=== PATIENT | female | born 1995 | race Hispanic/Latino ===

== ENCOUNTER 2017-09-03 18:34 | Emergency (ER) | payer SELFPAY ==
[2017-09-03 19:47] LABS: Absolute Lymphocytes (CBC) 2.5 K/uL (0.7-4.9); Absolute Monocytes 0.4 K/uL (0.1-1.3); Absolute Neutrophil 6.5 K/uL (1.8-8.0); Basophils % 0.3 % (0-1.3); Eosinophils % 1.3 % (0-4.4); Lymphocytes % 26.6 % (15.3-44.8); MCH 26.2 pg (27.0-35.0); MCV 80.4 fL (80-100); MPV 8.2 fL (7.6-11.3); Monocytes % 4.1 % (3.3-12.3); RBC Red Blood Cell Count 4.73 M/uL (3.86-4.86)
[2017-09-03 20:04] LABS: Bicarbonate 25 mEq/L (21-31); Glucose Level 99 mg/dL (65-120); Lipase 32 U/L (22-51); Potassium 3.4 mEq/L (3.6-5.0); Sodium Level 137 mEq/L (135-145)
[2017-09-03 20:07] LABS: Barbiturates NEGATIVE (NEGATIVE); Benzodiazepines NEGATIVE (NEGATIVE); Cocaine NEGATIVE (NEGATIVE); METHAMPHETAM NEGATIVE (NEGATIVE); Opiates NEGATIVE (NEGATIVE); Phencyclidine NEGATIVE (NEGATIVE); THC Cannibis NEGATIVE (NEGATIVE)
[2017-09-03 20:10] LABS: ALT/SGPT 17 IU/L (10-60); AST/SGOT 23 IU/L (10-42); Albumin 4.5 g/dL (3.2-5.5); Alkaline Phosphatase 74 IU/L (42-121); BUN Blood Urea Nitrogen 9 mg/dL (6-20); Bilirubin Direct < 0.1 mg/dL (0-0.2); Bilirubin Total 0.5 mg/dL (0.3-1.2); Protein, Total 8.1 g/dL (6.0-8.3)
--- NOTE | 2017-09-03 20:10 | RAD REPORT ---
EXAM DESCRIPTION: RAD - Chest Single View - 09/03/2017 7:50 pm CLINICAL HISTORY: Chest pain, shortness of breath COMPARISON: None. TECHNIQUE: AP portable chest image was obtained 1947 hours . FINDINGS: Lungs are clear. Heart and vasculature are normal. No measurable pleural effusion and no p neumothorax. No gross bony abnormality seen. No acute aortic findings suspected. IMPRESSION: No acute cardiopulmonary process.
--- NOTE | 2017-09-03 20:21 | ER ---
Nurse's Notes [facility] Name: Denisa Tripp Age: 22 yrs Sex: Female : 1995 Arrival Date: 09/03/2017 Time: 18:37 Bed 5 Private MD: Diagnosis: Chest pain. Anxiety disorder Presentation: 09/03 18:46 Presenting complaint: Patient states: Intermittent substernal pain, SOB, and nausea hb that started at 1500 today. Hx anxiety. Transition of care: patient was not received from another setting of care. Onset of symptoms was September 03, 2017 at 15:00. Risk Assessment: Do you want to hurt yourself or someone else? Patient reports no desire to harm self or others. Care prior to arrival: None. 18:46 Method Of Arrival: Ambulatory hb 18:46 Acuity: JANELLE 3 hb 19:22 Initial Sepsis Screen: Does the patient meet any 2 criteria? No. Patient's initial ao sepsis screen is negative. Does the patient have a suspected source of infection? No. Patient's initial sepsis screen is negative. 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 - Social history:: Smoking status: Patient/guardian denies using tobacco. - Ebola Screening: : No symptoms or risks identified at this time. Screenin:45 Abuse screen: Denies threats or abuse. Denies injuries from another. Nutritional sv screening: No deficits noted. Tuberculosis screening: No symptoms or risk factors identified. Fall Risk None identified. Assessment: 18:45 General: Appears in no apparent distress. comfortable, slender, Behavior is calm, sv cooperative, appropriate for age. Pain: Complains of pain in xyphoid area and mid-sternal area Pain does not radiate. Pain currently is 4 out of 10 on a pain scale. Quality of pain is described as sharp, Pain began 1500 today Is intermittent. Neuro: Level of Consciousness is awake, alert, obeys commands, Oriented to person, place, time, situation, Moves all extremities. Full function Gait is steady, Speech is normal. Cardiovascular: Heart tones S1 S2 present Patient's skin is warm and dry. Respiratory: Respiratory effort is Respiratory pattern is regular, symmetrical, Breath sounds are clear bilaterally. Derm: Skin is pink, warm \T\ dry. Musculoskeletal: Range of motion: intact in all extremities. 19:19 General: Appears in no apparent distress. comfortable, slender, Behavior is calm, ao cooperative, appropriate for age. Pain: Denies pain. Pain: Complains of pain in Reports of chest pain but not at this moment. Neuro: Level of Consciousness is awake, alert, obeys commands, Oriented to person, place, time, situation, Moves all extremities. Full function Gait is steady, Speech is normal. GI: Abdomen is non-distended. : No signs and/or symptoms were reported regarding the genitourinary system. EENT: No signs and/or symptoms were reported regarding the EENT system. Derm: Skin is pink, warm \T\ dry. Skin temperature is warm. Musculoskeletal: Range of motion: intact in all extremities. 20:35 Reassessment: DC given to patient. Patient agree with the POC and to follow up with ao PCP. No questions at this moment. Vital Signs: 18:47 BP 113 / 76; Pulse 70; Resp 16; Temp 97.7; Pulse Ox 98% ; Weight 58.97 kg (M); Height 5 hb ft. 2 in. (157.48 cm); Pain 4/10; 19:19 BP 105 / 66; Pulse 72; Resp 16; Pulse Ox 99% on R/A; ao 18:47 Body Mass Index 23.78 (58.97 kg, 157.48 cm) hb ED Course: 18:37 Patient arrived in ED. as 18:45 Patient has correct armband on for positive identification. Placed in gown. Bed in low sv position. turret punch operator on. Pulse ox on. NIBP on. Door closed. Head of bed elevated. 18:45 Patient maintains SpO2 saturation greater than 95% on room air. sv 18:47 Triage completed. hb 18:47 Arm band placed on right wrist. hb 18:58 Jalyn Hernandez, RN is Primary Nurse. sv 18:58 EKG done, by ED staff, reviewed by Sunil Colunga MD. sv 19:06 Report given to Johnson RN, José RN, Mayela RN. sv 19:07 Primary Nurse role handed off by Jalyn Hernandez, EMMANUEL 19:09 Lopez Diaz MD is Attending Physician. pkl 19:09 Johnson Craft, RN is Primary Nurse. ao 19:25 Urine collected: clean catch specimen, clear. aa1 19:30 Initial lab(s) drawn, by me, sent to lab. Inserted saline lock: 20 gauge in right cc antecubital area, using aseptic technique. Blood collected. 19:49 X-ray completed. Portable x-ray completed in exam room. Patient tolerated procedure bb2 well. 19:50 XRAY CXR (1 view) In Process Unspecified. EDMS 20:34 No provider procedures requiring assistance completed. IV discontinued, intact, mg2 bleeding controlled, No redness/swelling at site. Pressure dressing applied. Administered Medications: 20:34 Drug: K-Dur 20 mEq Route: PO; mg2 20:34 Follow up: Response: No adverse reaction mg2 Outcome: 20:21 Discharge ordered by . pkl 20:35 Discharged to home ambulatory. ao 20:35 Condition: stable 20:35 Discharge instructions given to patient, Instructed on discharge instructions, follow up and referral plans. Demonstrated understanding of instructions, follow-up care, medications, Prescriptions given X 1. 20:36 Patient left the ED. ao Signatures: Dispatcher [employer] EDMS Jalyn Hernandez RN RN Mayela Billy RN RN aa1 Lopez Diaz MD MD pkElizabet Quiroz Chelsea Johnson Craft RN RN ao Estephanie Restrepo RN RN Stephanie Oneal bb2 José Vasquez RN RN mg2
--- NOTE | 2017-09-03 20:21 | EDPHYS ---
Physician Documentation [facility] Name: Denisa Tripp Age: 22 yrs Sex: Female : 1995 Arrival Date: 09/03/2017 Time: 18:37 Bed 5 Private MD: ED Physician Lopez Diaz HPI: 09/03 19:18 This 22 yrs old Female presents to ER via Ambulatory with complaints of Chest pkl Pain. 19:18 The patient or guardian reports chest pain that is located primarily in the substernal pkl area. The pain does not radiate. Associated signs and symptoms: Pertinent positives: shortness of breath. The chest pain is described as sharp. The patient has experienced similar episodes in the past, several times. 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 - Social history:: Smoking status: Patient/guardian denies using tobacco. - Ebola Screening: : No symptoms or risks identified at this time. ROS: 19:18 Eyes: Negative for injury, pain, redness, and discharge, ENT: Negative for injury, pkl pain, and discharge, Neck: Negative for injury, pain, and swelling. 19:18 Cardiovascular: Positive for chest pain. 19:18 Respiratory: Positive for shortness of breath. 19:18 Abdomen/GI: Negative for abdominal pain, nausea, vomiting, and diarrhea. 19:18 Back: Negative for acute changes. 19:18 : Negative for urinary symptoms. 19:18 MS/extremity: Negative for acute changes. 19:18 Skin: Negative for rash. 19:18 Neuro: Negative for altered mental status. Exam: 19:18 Head/Face: Normocephalic, atraumatic. Eyes: Pupils equal round and reactive to light, pkl extra-ocular motions intact. Lids and lashes normal. Conjunctiva and sclera are non-icteric and not injected. Cornea within normal limits. Periorbital areas with no swelling, redness, or edema. ENT: Nares patent. No nasal discharge, no septal abnormalities noted. Tympanic membranes are normal and external auditory canals are clear. Oropharynx with no redness, swelling, or masses, exudates, or evidence of obstruction, uvula midline. Mucous membranes moist. Neck: Trachea midline, no thyromegaly or masses palpated, and no cervical lymphadenopathy. Supple, full range of motion without nuchal rigidity, or vertebral point tenderness. No Meningismus. Chest/axilla: Normal chest wall appearance and motion. Nontender with no deformity. No lesions are appreciated. Cardiovascular: Regular rate and rhythm with a normal S1 and S2. No gallops, murmurs, or rubs. Normal PMI, no JVD. No pulse deficits. Respiratory: Lungs have equal breath sounds bilaterally, clear to auscultation and percussion. No rales, rhonchi or wheezes noted. No increased work of breathing, no retractions or nasal flaring. Abdomen/GI: Soft, non-tender, with normal bowel sounds. No distension or tympany. No guarding or rebound. No evidence of tenderness throughout. Back: No spinal tenderness. No costovertebral tenderness. Full range of motion. Skin: Warm, dry with normal turgor. Normal color with no rashes, no lesions, and no evidence of cellulitis. MS/ Extremity: Pulses equal, no cyanosis. Neurovascular intact. Full, normal range of motion. Neuro: Awake and alert, GCS 15, oriented to person, place, time, and situation. Cranial nerves II-XII grossly intact. Motor strength 5/5 in all extremities. Sensory grossly intact. Cerebellar exam normal. Normal gait. Vital Signs: 18:47 BP 113 / 76; Pulse 70; Resp 16; Temp 97.7; Pulse Ox 98% ; Weight 58.97 kg (M); Height 5 hb ft. 2 in. (157.48 cm); Pain 4/10; 19:19 BP 105 / 66; Pulse 72; Resp 16; Pulse Ox 99% on R/A; ao 18:47 Body Mass Index 23.78 (58.97 kg, 157.48 cm) hb MDM: 19:09 Patient medically screened. pk 20:20 Data reviewed: vital signs, nurses notes, lab test result(s), EKG, radiologic studies. [facility] 09/03 19:16 Order name: CBC with Diff; Complete Time: 20:06 [facility] 09/03 19:16 Order name: Chem 7; Complete Time: 20:19 [facility] 09/03 19:16 Order name: D-Dimer; Complete Time: 20:06 [facility] 09/03 19:16 Order name: Troponin (emerg Dept Use Only); Complete Time: 20:19 [facility] 09/03 19:16 Order name: LFT's; Complete Time: 20:19 [facility] 09/03 19:16 Order name: Lipase; Complete Time: 20:19 [facility] 09/03 19:02 Order name: EKG; Complete Time: 19: 09/03 19:02 Order name: EKG - Nurse/Tech; Complete Time: 19:02 09/03 19:16 Order name: XRAY CXR (1 view); Complete Time: 20:19 [facility] 09/03 19:20 Order name: UDS [facility] 09/03 19:20 Order name: Urine Drug Screen [facility] 09/03 20:02 Order name: Urine Dipstick--Ancillary (enter results) ms 09/03 20:02 Order name: Urine --Ancillary (enter results) ms Administered Medications: 20:34 Drug: K-Dur 20 mEq Route: PO; mg2 20:34 Follow up: Response: No adverse reaction mg2 Disposition: 09/03/17 20:21 Discharged to Home. Impression: Chest pain. Anxiety disorder. - Condition is Stable. - Prescriptions for Ativan 0.5 mg Oral Tablet - take 1 tablet by ORAL route 2 times per day As needed; 20 tablet. - Medication Reconciliation Form, Thank You Letter, Antibiotic Education, Prescription Opioid Use form. - Follow up: Private Physician; When: 2 - 3 days; Reason: Re-evaluation by your physician. - Problem is new. - Symptoms have improved. Signatures: Dispatcher [employer] [facility] Jalyn Hernandez RN RN sv Lam, Pin, MD MD pkl Ortiz, Alex, RN RN ao Baxter, Heather, RN RN hb Gardose, Michele, RN RN mg2 Corrections: (The following items were deleted from the chart) 20:36 20:21 09/03/2017 20:21 Discharged to Home. Impression: Chest pain. Anxiety disorder. ao Condition is Stable. Forms are Medication Reconciliation Form, Thank You Letter, Antibiotic Education, Prescription Opioid Use. Follow up: Private Physician; When: 2 - 3 days; Reason: Re-evaluation by your physician. Problem is new. Symptoms have improved. pkl
[2017-09-03] MEDS ORDERED: POTASSIUM CL SA 10 MEQ TAB PO ONE (20:31)
[2017-09-03 22:02] LABS: Urine Blood TRACE (NEG); Urine Glucose NEGATIVE (NEG); Urine Protein NEGATIVE (NEG); Urine Specific Gravity 1.015 (1.005-1.030)
--- NOTE | 2017-09-04 05:34 | EKG ---
Test Date: 2017-09-03 Test Time: 18:55:46 General Assembler: MALIK MEASUREMENT RESULTS: Intervals: Rate: 78 OR: 146 QRSD: 86 QT: 386 QTc: 440 [place]: P: 21 OR: 146 QRS: 80 T: 45 INTERPRETIVE STATEMENTS: Normal sinus rhythm Normal ECG No previous ECG available for comparison Electronically Signed On 09-04-17 05:33:09 CDT by Sukumar Britton
== END 2017-09-03 20:36 | disposition home or self-care (01) ==
LOC: ER 18:34
DX: F41.9 Anxiety disorder, unspecified (principal)
CPT/HCPCS: 36415; 71045; 80048; 80076; 80307; 81003; 81025; 83690; 84484; 85025; 85379; 93005; 99285

== ENCOUNTER 2018-02-24 21:02 | Emergency (ER) | payer SELFPAY ==
--- OUTSIDE RECORDS SUMMARY | 2018-02-24 21:04 | XMS REPORT ---
:1995 [facility] Address [address] [place] [address] [address] [place] [address] Care Team Providers Name Role Phone Unavailable Unavailable Unavailable Payers Payer Name Policy Type Policy Number Effective Date Expiration Date Problems This patient has no known problems. Allergies, Adverse Reactions, Alerts Allergy Allergy Status Severity Reaction(s) Onset Inactive Treating Comments Name Type Date Date Clinician No Known DA Active U 2015-07 Allergies -24 00:00:0 0 Medications This patient has no known medications.
[2018-02-24 23:22] LABS: Absolute Lymphocytes (CBC) 3.7 K/uL (0.7-4.9); Absolute Monocytes 0.5 K/uL (0.1-1.3); Absolute Neutrophil 2.4 K/uL (1.8-8.0); Basophils % 0.4 % (0-1.3); Eosinophils % 0.9 % (0-4.4); Hematocrit 36.4 % (36.0-45.0); Lymphocytes % 55.9 % (15.3-44.8); MCH 27.3 pg (27.0-35.0); MCV 81.9 fL (80-100); MPV 7.7 fL (7.6-11.3); RBC Red Blood Cell Count 4.44 M/uL (3.86-4.86)
[2018-02-24 23:23] LABS: Protime INR 0.98
[2018-02-24 23:49] LABS: ALT/SGPT 46 U/L (12-78); AST/SGOT 40 U/L (15-37); Albumin 3.7 g/dL (3.4-5.0); Alkaline Phosphatase 85 U/L (45-117); BUN Blood Urea Nitrogen 9 mg/dL (7-18); Bicarbonate 25 mmol/L (21-32); Bilirubin Direct < 0.1 mg/dL (0-0.2); Bilirubin Total 0.3 mg/dL (0.2-1.0); Glucose Level 116 mg/dL (74-106); NT PRO-BNP 44 pg/mL (<125); Potassium 3.8 mmol/L (3.5-5.1); Protein, Total 7.7 g/dL (6.4-8.2); Sodium Level 139 mmol/L (136-145); Troponin (Emerg Dept Use Only) < 0.02 ng/mL (0.0-0.045)
[2018-02-25] MEDS ORDERED: KETOROLAC 30 MG/ML INJ ONE (00:55)
--- NOTE | 2018-02-25 01:21 | ER ---
Nurse's Notes [facility] Name: Denisa Tripp Age: 22 yrs Sex: Female : 1995 Arrival Date: 02/24/2018 Time: 21:06 Bed 28 Private MD: Diagnosis: Thoracic Back Pain Presentation: 02/24 21:10 Presenting complaint: Patient states: LUQ abd pain radiating to back for one hour, la1 reports nausea, denies vomiting/diarrhea. Transition of care: patient was not received from another setting of care. Onset of symptoms was February 24, 2018. Risk Assessment: Do you want to hurt yourself or someone else? Patient reports no desire to harm self or others. Initial Sepsis Screen: Does the patient meet any 2 criteria? No. Patient's initial sepsis screen is negative. Does the patient have a suspected source of infection? No. Patient's initial sepsis screen is negative. Care prior to arrival: None. 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 - Social history:: Smoking status: Patient/guardian denies using tobacco. - Ebola Screening: : No symptoms or risks identified at this time. Screenin:13 Abuse screen: Denies threats or abuse. Denies injuries from another. Nutritional mg2 screening: No deficits noted. Tuberculosis screening: No symptoms or risk factors identified. Fall Risk None identified. Assessment: 22:11 General: Appears in no apparent distress. comfortable, Behavior is calm, cooperative. mg2 Pain: Complains of pain in LUQ Pain radiates to back Pain currently is 4 out of 10 on a pain scale. Quality of pain is described as aching, Pain began gradually, 1 hour ago. Is intermittent. Neuro: Level of Consciousness is awake, alert, obeys commands, Oriented to person, place, time, situation. Cardiovascular: Capillary refill < 3 seconds Patient's skin is warm and dry. Respiratory: Airway is patent Respiratory effort is even, unlabored, Respiratory pattern is regular, symmetrical. GI: Abdomen is flat, non-distended. GI: Abd is soft and non tender X 4 quads. : No signs and/or symptoms were reported regarding the genitourinary system. EENT: No signs and/or symptoms were reported regarding the EENT system. Derm: Skin is intact, is healthy with good turgor, Skin is pink, warm \T\ dry. normal. Musculoskeletal: No signs and/or symptoms reported regarding the musculoskeletal system. Vital Signs: 21:10 BP 116 / 80; Pulse 101; Resp 16; Temp 97.6; Pulse Ox 98% on R/A; Weight 63.5 kg; Height la1 5 ft. 2 in. (157.48 cm); 22:14 BP 110 / 73; Pulse 84; Resp 18; Pulse Ox 100% on R/A; Pain 4/10; mg2 23:55 BP 104 / 77; Pulse 89; Resp 18; Pulse Ox 100% on R/A; Pain 0/10; mg2 12 01:28 BP 110 / 78; Pulse 80; Resp 18; Pulse Ox 100% on R/A; Pain 0/10; mg2 12 21:10 Body Mass Index 25.61 (63.50 kg, 157.48 cm) la1 ED Course: 02/24 21:06 Patient arrived in ED. es 21:10 Triage completed. la1 21:11 Arm band placed on left wrist. la1 22:02 Logan Moran PA is PHCP. [facility] 22:02 Sunday Sutherland MD is Attending Physician. [facility] 22:08 José Vasquez, EMMANUEL is Primary Nurse. mg2 22:14 Patient has correct armband on for positive identification. Pulse ox on. NIBP on. mg2 22:14 No provider procedures requiring assistance completed. mg2 22:39 Inserted saline lock: 20 gauge in left antecubital area, using aseptic technique. Blood mg2 collected. 22:58 X-ray completed. Portable x-ray completed in exam room. Patient tolerated procedure la2 well. 12 01:29 IV discontinued, intact, bleeding controlled, No redness/swelling at site. Pressure mg2 dressing applied. Administered Medications: 00:49 Not Given (Patient Refused): Ketorolac 30 mg IVP once mg2 Outcome: 01:20 Discharge ordered by . karen 01:29 Discharged to home ambulatory, with family. mg2 01:29 Condition: stable 01:29 Discharge instructions given to patient, family, Instructed on discharge instructions, follow up and referral plans. medication usage, Demonstrated understanding of instructions, follow-up care, medications, Prescriptions given X 1. 01:29 Patient left the ED. mg2 Signatures: Logan Moran PA PA jmm Salyer, Edna es Attema, Lee RN RN la1 Georgina Moura2 José Vasquez RN RN mg2
--- NOTE | 2018-02-25 01:21 | EDPHYS ---
Physician Documentation [facility] Name: Denisa Tripp Age: 22 yrs Sex: Female : 1995 Arrival Date: 02/24/2018 Time: 21:06 Bed 28 Private MD: ED Physician Sunday Sutherland HPI: 02/24 22:30 This 22 yrs old Female presents to ER via Ambulatory with complaints of Back jmm Pain, Pain under rib. 22:30 The patient presents with pain that is acute. The symptoms are located in the left jmm subscapular area. Onset: The symptoms/episode began/occurred acutely, 2 hour(s) ago. The pain radiates to the chest. Associated signs and symptoms: Pertinent positives: chest pain, Pertinent negatives: fever. This is a 22 year old female with a history of anxiety that presents to the ED with left sided back pain radiating to the left side of her chest pain. Pain is described as sharp. Patient denies hx of PE, exogenous estrogen use, leg swelling, hemoptysis, hx of DVT. . 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 - Social history:: Smoking status: Patient/guardian denies using tobacco. - Ebola Screening: : No symptoms or risks identified at this time. ROS: 22:30 Constitutional: Negative for fever, chills, and weight loss. jmm 22:30 Cardiovascular: Positive for chest pain. 22:30 Back: Positive for pain at rest, pain with movement. 22:30 All other systems are negative. Exam: 22:30 Constitutional: This is a well developed, well nourished patient who is awake, alert, jmm and in no acute distress. Head/Face: atraumatic. Eyes: EOMI, no conjunctival erythema appreciated Chest/axilla: Normal chest wall appearance and motion. Cardiovascular: Regular rate and rhythm. No edema appreciated Respiratory: Normal respirations, no respiratory distress appreciated 22:30 Back: mild pain elicited on palpation of the left subscapular region, no cva tenderness is appreciated. . 22:30 Musculoskeletal/extremity: ROM: intact in all extremities. 22:30 Skin: Appearance: Color: normal in color. 22:30 Neuro: Orientation: is normal, Mentation: is normal, Memory: is normal, Gait: is steady. Vital Signs: 21:10 BP 116 / 80; Pulse 101; Resp 16; Temp 97.6; Pulse Ox 98% on R/A; Weight 63.5 kg; Height la1 5 ft. 2 in. (157.48 cm); 22:14 BP 110 / 73; Pulse 84; Resp 18; Pulse Ox 100% on R/A; Pain 4/10; mg2 23:55 BP 104 / 77; Pulse 89; Resp 18; Pulse Ox 100% on R/A; Pain 0/10; mg2 02/25 01:28 BP 110 / 78; Pulse 80; Resp 18; Pulse Ox 100% on R/A; Pain 0/10; mg2 02/24 21:10 Body Mass Index 25.61 (63.50 kg, 157.48 cm) la1 MDM: 02/24 22:23 [facility] medically screened. [facility] 02/25 01:14 Data reviewed: vital signs, nurses notes. Counseling: I had a detailed discussion with karen the patient and/or guardian regarding: the historical points, exam findings, and any diagnostic results supporting the discharge/admit diagnosis, lab results, radiology results, the need for outpatient follow up, to return to the emergency department if symptoms worsen or persist or if there are any questions or concerns that arise at home. ED course: Patient's pain is relieved in the ED with no intervention. PERC Score is negative. . 02/24 22:24 Order name: Basic Metabolic Panel [facility] 02/24 22:24 Order name: CBC with Diff [facility] 02/24 22:24 Order name: LFT's [facility] 02/24 22:24 Order name: Magnesium [facility] 02/24 22:24 Order name: NT PRO-BNP [facility] 02/24 22:24 Order name: PT-INR [facility] 02/24 22:24 Order name: Troponin (emerg Dept Use Only) [facility] 02/24 23:39 Order name: CBC with Automated Diff; Complete Time: 23:54 EDMS 02/24 23:40 Order name: Protime (+INR); Complete Time: 23:54 EDMS 02/24 23:49 Order name: Basic Metabolic Panel; Complete Time: 23:54 EDMS 02/24 23:49 Order name: Liver (Hepatic) Function; Complete Time: 23:54 [facility] 02/24 23:49 Order name: Troponin (Emerg Dept Use Only); Complete Time: 23:54 [facility] / 23:49 Order name: NT PRO-BNP; Complete Time: 23:54 [facility] 02/24 23:49 Order name: Magnesium; Complete Time: 23:54 [facility] 02/24 22:24 Order name: XRAY Chest (1 view) [facility] 02/24 22:24 Order name: EKG; Complete Time: 22:25 [facility] 02/24 22:24 Order name: Cardiac monitoring; Complete Time: 22:38 [facility] 02/24 22:24 Order name: EKG - Nurse/Tech; Complete Time: 22:38 [facility] 02/24 22:24 Order name: IV Saline Lock; Complete Time: 22:38 [facility] 02/24 22:24 Order name: Labs collected and sent; Complete Time: 22:38 [facility] 02/24 22:24 Order name: O2 Per Protocol; Complete Time: 22:39 [facility] 02/24 22:24 Order name: O2 Sat Monitoring; Complete Time: 22:39 [facility] Administered Medications: 00:49 Not Given (Patient Refused): Ketorolac 30 mg IVP once mg2 Disposition: 05:01 Co-signature as Attending Physician, Sunday Sutherland MD. rn Disposition: 02/25/18 01:20 Discharged to Home. Impression: Thoracic Back Pain. - Condition is Stable. - Discharge Instructions: Thoracic Strain. - Prescriptions for orphenadrine citrate 100 mg Oral Tablet Sustained Release - take 1 tablet by ORAL route 2 times per day As needed; 20 tablet. - Medication Reconciliation Form, Thank You Letter, Antibiotic Education, Prescription Opioid Use form. - Follow up: Private Physician; When: 2 - 3 days; Reason: Recheck today's complaints, Continuance of care, Re-evaluation by your physician. Signatures: Dispatcher [employer] [facility] Logan Moran PA PA Sunday Mendes MD MD rn Attema, Lee, RN RN la1 José Vasquez RN RN mg2 Corrections: (The following items were deleted from the chart) 01:29 01:20 02/25/2018 01:20 Discharged to Home. Impression: Thoracic Back Pain. Condition is mg2 Stable. Forms are Medication Reconciliation Form, Thank You Letter, Antibiotic Education, Prescription Opioid Use. Follow up: Private Physician; When: 2 - 3 days; Reason: Recheck today's complaints, Continuance of care, Re-evaluation by your physician. mohan
--- NOTE | 2018-02-25 07:39 | EKG ---
Test Date: 2018-02-24 Test Time: 22:32:29 Fashion Styling Intern: MEASUREMENT RESULTS: Intervals: Rate: 81 CT: 166 QRSD: 84 QT: 386 QTc: 448 [place]: P: 39 CT: 166 QRS: 76 T: 44 INTERPRETIVE STATEMENTS: Normal sinus rhythm Normal ECG Compared to ECG 09/03/2017 18:55:46 No significant changes Electronically Signed On 02-25-18 07:38:26 PULVERIZER OPERATOR by Adin Ross
--- NOTE | 2018-02-25 08:20 | RAD REPORT ---
EXAM DESCRIPTION: [place] Single View02/24/2018 10:59 pm CLINICAL HISTORY: Chest pain COMPARISON: August 2017 FINDINGS: The lungs appear clear of acute infiltrate. The heart is normal size IMPRESSION: No acute abnormalities displayed
== END 2018-02-25 01:29 | disposition home or self-care (01) ==
LOC: ER 21:02
DX: M54.6 Pain in thoracic spine (principal)
CPT/HCPCS: 36415; 71045; 80048; 80076; 83735; 83880; 84484; 85025; 85610; 93005; 99284